=== PATIENT | female | born 1970 | race Caucasian/White ===

== ENCOUNTER 2016-09-27 15:36 | Outpatient (CLI) | payer OTHER ==
--- NOTE | 2016-09-27 16:57 | DIAGNOSTIC IMAGING REPORT ---
PROCEDURE: US COMPLETE PELVIC W/TRANSVAG INDICATION: Dysfunctional uterine bleeding TECHNIQUE: Transabdominal and endovaginal pollack scale and color Doppler sonographic images of the female pelvis were obtained. COMPARISON: 12/06/2015 FINDINGS: TRANSABDOMINAL SCANS: Anteverted and anteflexed uterus measures 7.8 cm in length. Normal contour and echotexture. There is a cystic structure in the left adnexa measuring about 4.4 cm. Right adnexa is normal. The visible portion of the urinary bladder is normal. No significant free pelvic fluid. TRANSVAGINAL SCANS: The uterus is anteverted in position and has a homogeneous myometrial echotexture. A few Nabothian cysts are seen in the cervix. The uterus measures 9.5 by 5.6 x 4.8 cm. The endometrium is 9.6 mm in thickness. Normal vascularity. No suspicious endometrial fluid collections or masses. The right ovary measures 2.3 x 1.4 x 1.7 cm and has a normal follicular echotexture. There is normal arterial and venous ovarian flow present. The left ovary measures 5.8 x 3.4 x 4.1 cm and contains a simple cyst measuring 5.2 cm. There is normal ovarian vascularity. No suspicious adnexal masses or free pelvic fluid. IMPRESSION: 1. Normal uterus. 2. 5.2 cm simple left ovarian cyst, new since the previous study. 3. Interval resolution of prior right ovarian follicle.
--- NOTE | 2016-09-27 17:08 | DIAGNOSTIC IMAGING REPORT ---
PROCEDURE: US ABDOMEN ULTRASOUND-COMPLETE INDICATION: NAUSEA AFTER EATING TECHNIQUE: Ewing scale and color Doppler sonographic images of the abdomen were obtained without comparison. COMPARISON: None. FINDINGS: The liver is normal in size, contour, and echotexture. No mass or intrahepatic biliary dilatation. The gallbladder is normal without stones or sludge. The wall is normal thickness measuring 1.4 mm No pericholecystic fluid or Vazquez sign. The extrahepatic common duct is normal measuring 6.1 mm The visualized pancreas is normal without ductal dilatation or peripancreatic fluid collection. The abdominal aorta is normal in its course and caliber. The retrohepatic inferior vena cava is patent. There is appropriate hepatopetal flow in the portal vein. The right kidney measures 12.8 cm in length. The left kidney is surgically absent. The kidney demonstrates normal morphology and cortical thickness without hydronephrosis, cyst, solid mass, or shadowing calculus. Color Doppler imaging demonstrates normal blood flow. The spleen is normal in size measuring 10.3 cm in length. There is no perihepatic or perisplenic ascites. IMPRESSION: 1. Normal abdominal ultrasound.
== END 2016-09-27 23:00 | disposition home or self-care (01) ==
LOC: US SRH 15:36
DX: N83.202 Unspecified ovarian cyst, left side (principal); R11.0 Nausea